=== PATIENT | female | born 1970 | race Caucasian/White ===

== ENCOUNTER 2021-08-09 11:05 | Emergency (ER) | payer BC, SELFPAY ==
--- NOTE | ~2021-08-09 | CT_ITS ---
EXAMINATION: CT brain wo con DATE: 08/09/2021 13:41 INDICATION: Dizziness. Nausea and vomiting. TECHNIQUE: Computed tomography (CT) of the head was performed without intravenous contrast. Sagittal and coronal reconstructions were performed. The mA was adjusted according to patient size. Iterative reconstruction technique was employed. The dose-length product was 605.33 mGy-cm. COMPARISON: None FINDINGS: No acute intracranial hemorrhage, acute infarction or abnormal extra axial fluid collection. Ventricl es are normal and symmetric. No mass/mass effect. Empty sella with midline pituitary stalk extendin g to the floor of the fluid filled sella with nearly indiscernible pituitary flattened along the floo r of the sella. The orbits, paranasal sinuses and mastoid air cells are normal. IMPRESSION: 1. Empty sella which can be seen in the setting of a pathologic intracranial hypertension. No other acute intracranial process. Reviewed, dictated and finalized at location A.
[2021-08-09 11:06] VITALS: BP 123/74; PULSE 102; RESP 16; TEMP 36; O2SAT 99
[2021-08-09 12:02] LABS: Basophils Absolute Auto 0.1 K/mm3 (0.0-0.1); Basophils Percent Auto 0.9 % (0.2-1.2); Eosinophils Absolute Auto 0.3 K/mm3 (0-0.3); Eosinophils Percent Auto 2.2 % (0-4.4); Immature Granulocyte Absolute 0.07 K/mm3 (0.00-0.031); Immature Granulocyte Percent A 0.6 % (0-0.5); Lymphocytes Absolute Auto 2.52 K/mm3 (0.9-3.2); Lymphocytes Percent Auto 21.8 % (18.3-44.2); Mean Corpuscular HGB Conc 31.7 g/dl (32-36); Mean Corpuscular Hemoglobin 26.8 pg (26-34); Mean Corpuscular Volume 84.5 fl (80-100); Mean Platelet Volume 9.4 fl (7.4-10.4); Monocytes Absolute Auto 0.6 K/mm3 (0.1-0.6); Monocytes Percent Auto 4.8 % (2.6-8.5); Neutrophils Absolute Auto 8.1 K/mm3 (1.3-6.7); Neutrophils Percent Auto 69.7 % (45.5-73.1); Platelet Count Result 427 k/mm3 (150-375); Red Blood Count 4.85 M/mm3 (4.2-5.4); Red Cell Distribution Width 15.4 % (11.5-14.5); White Blood Count 11.6 K/mm3 (4.5-10.0)
[2021-08-09 12:13] LABS: Alanine Aminotransferase 26 U/L (4-35); Alkaline Phosphatase 99 U/L (38-126); Anion Gap 8 mmol/L (8-16); Aspartate Amino Transferase 28 U/L (14-36); Bilirubin,Total 0.2 mg/dL (0.2-1.3); Blood Urea Nitrogen 13 mg/dL (7-17); Calcium 8.6 mg/dL (8.4-10.2); Carbon Dioxide 26 mmol/L (22-30); Chloride 103 mmol/L (98-107); Estimated CRCL calculation 83 ml/min; Estimated Glomerular Filt Rate > 60; Glucose 149 mg/dL (65-110); Lipase 42 U/L (23-300); Potassium 3.5 mmol/L (3.4-5.0); Sodium 137 mmol/L (137-145)
[2021-08-09] MEDS: ONDANSETRON INJ 4 MG/2 ML VIAL IV PUSH (12:15)
[2021-08-09] MEDS: SODIUM CHLORIDE 0.9% IV 1,000 ML 999 ML IV CONT (12:15)
[2021-08-09 12:18] VITALS: BP 115/75; PULSE 84; RESP 16; O2SAT 100
--- NOTE | 2021-08-09 12:36 | ED.DIZZY ---
HPI - Dizziness General Chief Complaint: Nausea/Vomiting/Diarrhea Stated Complaint: vomiting Time Seen by Provider: 08/09/21 12:05 Source: patient Mode of arrival: ambulatory Limitations: no limitations History of Present Illness HPI Narrative: Patient is a 51-year-old female complaining of dizziness, described as room spinning, worse with head movement, accompanied by nausea and vomiting started today. Patient states she is currently not dizzy because she is laying still, only brought on for any type of movement especially when she stands up and turns her head. Denies any speech or visual disturbance, focal weakness or numbness, chest pain, shortness of breath, abdominal pain, diarrhea, fever or chills. Related Data Allergies Allergy/AdvReac Type Severity Reaction Status Date / Time No Known Allergies Allergy Verified 08/09/21 11:55 Review of Systems Review of Systems: All systems reviewed & are unremarkable except as noted in HPI and below Constitutional: Constitutional: Denies body ache(s), Denies chills, Denies excessive sweating, Denies fatigue, Denies fever(s), Denies headache(s), Denies lethargy, Denies malaise, Denies weakness and Denies weight loss Eyes: Eyes: Denies blurry vision, Denies change in vision and Denies loss of vision ENT: Denies dizziness, Denies ear discharge, Denies headache(s), Denies lip swelling, Denies epistaxis, Denies nasal congestion, Denies neck pain, Denies throat swelling and Denies tongue swelling Cardiovascular: Cardiovascular: Denies chest pain, Denies chest pain at rest, Denies chest pain with activity, Denies diaphoresis, Denies rapid heart rate, Denies edema, Denies irregular heart rhythm, Denies lightheadedness, Denies palpitations, Denies dyspnea and Denies dyspnea on exertion Respiratory: Respiratory: Denies chest congestion, Denies cough, Denies hemoptysis, Denies dyspnea and Denies dyspnea on exertion Gastrointestinal: Gastrointestinal: Denies abdominal pain, Denies melena, Denies hematochezia, Denies diarrhea and Denies hematemesis Musculoskeletal: Musculoskeletal: Denies abnormal gait, Denies deformity, Denies joint swelling, Denies limited range of motion, Denies neck pain and Denies numbness Neurologic: Denies Abnormal speech present, Denies abnormal gait, Denies confusion, Denies headache(s), Denies focal weakness, Denies loss of vision, Denies numbness, Denies Other visual disturbances, Denies Sensory deficit (Neuro) and Denies weakness Psychiatric: Psychiatric: Denies confusion, Denies depression, Denies auditory hallucinations, Denies homicidal ideation and Denies suicidal ideation Endocrine: Endocrine: Denies cold intolerance, Denies excessive sweating, Denies fatigue, Denies heat intolerance and Denies palpitations Hematologic/Lymphatic: Hematologic/Lymphatic: Denies easy bleeding and Denies easy bruising Allergic/Immunologic: Allergic/Immunologic: Denies lip swelling, Denies throat swelling and Denies tongue swelling PMFSH Comments Past medical history: Hypertension, hyperlipidemia Family history: Hypertension Social history: Positive for smoker, no EtOH or drug use Exam Const: General: cooperative, comfortable, no acute distress, well developed, alert and awake; No confusion Nutritional Appearance: obese Orientation/consciousness: oriented to person, oriented to place, oriented to time, patient oriented x3 and No confusion Limitations: no limitations HENMT: Head: normal to inspection, normocephalic and atraumatic Ears: hearing grossly normal bilaterally, TM normal on the right and TM normal on the left General nose exam: Normal external nose present, Normal nares present and No nasal discharge present Face and sinus: normal facial exam Mouth: Yes Normal oral and palatal mucosa present, Yes lip normal, Yes tongue normal and Yes oropharynx normal Throat: posterior oropharynx normal, tonsils normal and uvula midline Eyes: General: appearance normal, both eyes and all rel
[2021-08-09] MEDS: PROMETHAZINE HCL 25 MG/ML AMPUL 12.5 MG IV PUSH (13:31)
[2021-08-09] MEDS: MECLIZINE HCL 25 MG TABLET PO (13:32)
[2021-08-09 14:44] LABS: Add Urine Microscopic? YES; Appearance Urine Cloudy (Clear); Bacteria Urine Trace /hpf; Bilirubin Urine Negative (Negative); Blood Urine 3+ (Negative); Color Urine Amber (Yellow); Glucose Urine UA Negative (Negative); Ketones Urine Negative (Negative); Leukocyte Esterase Ur Negative LEU/UL (Negative); Mucus Urine Heavy /lpf; Nitrate Urine Negative (Negative); Protein Urine 2+ mg/dL (Negative); Squamous Epithelial Cell Urine Many /hpf (Few); Urobilinogen Urine Negative mg/dL (<2.0)
--- NOTE | 2021-08-09 15:13 | ECG_ITS ---
Measurements Intervals Leming Rate: 82 P: 44 WI: 164 QRS: 32 QRSD: 85 T: 31 QT: 370 QTc: 434 Interpretive Statements SINUS RHYTHM LOW QRS VOLTAGE IN PRECORDIAL LEADS [QRS DEFLECTION < 1.0 mV IN CHEST LEADS] OTHERWISE UNREMARKABLE ECG NO PREVIOUS ECG AVAILABLE FOR COMPARISON Electronically Signed On 08-09-2021 20:51:51 CDT by Chino Bloom M.D.
[2021-08-09 15:45] VITALS: BP 118/81; PULSE 78; RESP 18; O2SAT 97
== END 2021-08-09 15:49 | disposition home or self-care (01) ==
PROVIDERS: Physician Assistant; Emergency Provider Emergency Medicine; PCP Nurse Practitioner Family
DX: R42 Dizziness and giddiness (principal); R11.2 Nausea with vomiting, unspecified; I10 Essential (primary) hypertension; E78.5 Hyperlipidemia, unspecified; F17.200 Nicotine dependence, unspecified, uncomplicated
CPT/HCPCS: 36415; 70450; 80053; 81001; 81025; 83690; 85025; 87086; 87088; 93005; 96374; 96375; 99284; A9270; J2405; J2550; J7030

== ENCOUNTER 2023-08-16 09:37 | Outpatient (CLI) | payer BC, SELFPAY ==
--- NOTE | ~2023-08-16 | XR_ITS ---
EXAMINATION: XR knee RT min 4V DATE: 08/16/2023 10:00 INDICATION: Right knee suprapatellar lump. TECHNIQUE: 5 views of right knee including standing views were obtained. COMPARISON: None. FINDINGS: There is a total right knee arthroplasty with patellar resurfacing in near-anatomic alignme nt. No fracture. No periprosthetic lucency to suggest loosening or infection. No knee joint effusion. IMPRESSION: 1. Total right knee arthroplasty in near-anatomic alignment. Reviewed, dictated and finalized at location A.
== END 2023-08-16 09:38 ==
PROVIDERS: PCP Nurse Practitioner Family; Visit Provider Nurse Practitioner Family
DX: M25.561 Pain in right knee (principal)
CPT/HCPCS: 73564

== ENCOUNTER 2023-10-11 10:43 | Emergency (ER) | payer BC, SELFPAY ==
--- NOTE | ~2023-10-11 | XR_ITS ---
EXAMINATION: XR finger 1st RT min 2V DATE: 10/11/2023 11:21 INDICATION: Right thumb hyperextension injury and pain. TECHNIQUE: 3 views of right thumb were obtained. COMPARISON: Right wrist radiograph 03/14/2007 FINDINGS: Bone alignment is normal. No fracture. There is mild osteoarthritis of first interphalangea l joint. IMPRESSION: 1. Mild osteoarthritis of first interphalangeal joint. Reviewed, dictated and finalized at location A.
[2023-10-11 10:49] VITALS: PULSE 113; RESP 16; TEMP 36.8; O2SAT 98
--- NOTE | 2023-10-11 12:32 | ED.GENADULT ---
HPI - General Adult General Chief complaint: Extremity Injury, Upper Stated complaint: R thumb pain, injury 1 mo ago Time Seen by Provider: 10/11/23 11:15 Source: patient Mode of arrival: ambulatory Limitations: no limitations History of Present Illness HPI narrative: This is a 53-year-old female who presents to the ED with chief complaint right thumb pain beginning 1 month ago after injury. Reports that the pain is still present and just has not gotten any better. States the pain is at the base of the thumb. She also reports that her thumb will lock up when she tries to bend it. Denies numbness, weakness or any further sites of pain or injury Related Data Allergies Allergy/AdvReac Type Severity Reaction Status Date / Time No Known Allergies Allergy Verified 10/11/23 10:43 Review of Systems Review of Systems: All systems as dictated in HPI Exam Narrative: GENERAL: Well-appearing, well-nourished, and in no acute distress. MSK: Mild tenderness to the 1st MCP joint. There is apparent catching of the flexor tendon with range of motion of the thumb. SKIN: Warm, dry, no rash. NEURO: Alert and oriented x3. No focal deficits. PSYCH: Normal mood and affect. Course Vital Signs Vital signs: Vital Signs Temperature 98.3 F 10/11/23 10:49 Pulse Rate 113 H 10/11/23 10:49 Respiratory Rate 16 10/11/23 10:49 Pulse Oximetry 98 10/11/23 10:49 Oxygen Delivery Room Air 10/11/23 10:49 Temperature 98.3 F 10/11/23 10:49 Pulse Rate 90 10/11/23 12:48 Respiratory Rate 20 10/11/23 12:48 Blood Pressure 155/89 H 10/11/23 12:48 Pulse Oximetry 98 10/11/23 12:48 Oxygen Delivery Room Air 10/11/23 10:49 Medical Decision Making [facility] Narrative Medical decision making narrative: This is a 53-year-old female who presents to the ED with chief complaint of right thumb pain from injury that happened 1 month ago and still having pain. Vitals are normal. Exam shows the flexor tendon is catching with extension of the thumb. Consistent with trigger finger. X-rays are negative for any acute findings. She was given referral to hand surgeon for further evaluation and treatment of this. Pt will be discharged in stable condition. Return precautions given and supportive measures discussed. Pt is understanding and agreeable with plan for discharge and follow-up with PCP. Vital Signs Vital Signs: Vital Signs Temperature 98.3 F 10/11/23 10:49 Pulse Rate 113 H 10/11/23 10:49 Respiratory Rate 16 10/11/23 10:49 Pulse Oximetry 98 10/11/23 10:49 Oxygen Delivery Room Air 10/11/23 10:49 Temperature 98.3 F 10/11/23 10:49 Pulse Rate 90 10/11/23 12:48 Respiratory Rate 20 10/11/23 12:48 Blood Pressure 155/89 H 10/11/23 12:48 Pulse Oximetry 98 10/11/23 12:48 Oxygen Delivery Room Air 10/11/23 10:49 Discharge Plan Discharge Clinical Impression: Trigger finger Patient Disposition: Home, Self-Care Condition: Stable Instructions: Antibiotic Form Additional Instructions: Your exam today is not reveal any fractures or emergent findings. There is evidence of trigger finger of your thumb. Please follow-up with hand doctor on this. Continue taking anti-inflammatories regularly for pain control. If you have any new or worsening symptoms please return to the ER for further evaluation. Prescriptions: No Action promethazine 25 mg tablet 25 mg PO TID PRN (Reason: nausea and vomiting) Qty: 10 0RF Rx Instructions: 3 doses during day; last dose no later than 4 hr before bedtime Follow-up/Referrals: Yenifer Joy MD [Physician] - Piña,Morro Marin APRN [Primary Care Provider] - Time of Disposition: 12:34
[2023-10-11 12:48] VITALS: BP 155/89; PULSE 90; RESP 20; O2SAT 98
== END 2023-10-11 12:49 | disposition home or self-care (01) ==
PROVIDERS: Emergency Provider Physician Assistant; PCP Nurse Practitioner Family
DX: M65.311 Trigger thumb, right thumb (principal)
CPT/HCPCS: 73140; 99283

== ENCOUNTER 2024-10-25 10:26 | Outpatient (CLI) | payer BC, SELFPAY ==
--- NOTE | ~2024-10-25 | XR_ITS ---
XR hip BI 2V w AP pelvis 10/25/2024 10:42 Indication: Left hip pain Procedure: 3 views each hip including AP pelvis Comparison: No prior studies for comparison. Findings: Pelvic rings intact. Sacral foramen are symmetric. There is there are mild degenerative lauri nges of the hips, left greater than right. No acute fracture. No soft tissue abnormality. No foreign bodies. Impression: 1: Mild osteoarthritis of the hips. Reviewed, dictated and finalized at location [] Impression: 1: Mild osteoarthritis of the hips.
== END 2024-10-25 10:27 | disposition home or self-care (01) ==
LOC: MICIMG 10:28
PROVIDERS: PCP Nurse Practitioner Family; Visit Provider Nurse Practitioner Family
DX: M16.0 Bilateral primary osteoarthritis of hip (principal)
CPT/HCPCS: 73521

== ENCOUNTER 2025-02-07 10:13 | Outpatient (CLI) | payer BC, SELFPAY ==
--- NOTE | ~2025-02-07 | XR_ITS ---
XR lumbar spine 2-3V Indication: Other intervertebral disc degeneration, lumbar region withou Comparison: None Findings: The vertebral heights are intact. No fracture or subluxation. The disc heights are intact. Soft tissues unremarkable Impression: No acute abnormality. Reviewed, dictated and finalized at location A. Impression: No acute abnormality.
--- NOTE | ~2025-02-07 | XR_ITS ---
EXAMINATION: XR knee RT 3V, 02/07/2025 10:21 CDT HISTORY: Pain in right knee COMPARISON: No comparisons available. Findings: No acute fracture or malalignment. Prosthesis intact Soft tissues unremarkable. Impression: No acute fracture or malalignment. Reviewed, dictated and finalized at location A. Impression: No acute fracture or malalignment.
== END 2025-02-07 10:14 | disposition home or self-care (01) ==
LOC: MICIMG 10:15
PROVIDERS: PCP Nurse Practitioner Family; Visit Provider Nurse Practitioner Family
DX: M51.369 Other intervertebral disc degeneration, lumbar region without mention of lumbar back pain or lower extremity pain (principal); M25.561 Pain in right knee
CPT/HCPCS: 72100; 73562